=== PATIENT | male | born 1970 | race Caucasian/White ===

== ENCOUNTER 2017-04-03 12:05 | Day surgery (SDC) | payer OTHER ==
[~2017-04-03] VITALS: Ht 177.8 cm; Wt 89.6 kg
[~2017-04-03 12:05] MED LIST: 0.9% Sodium Chloride 1,000 ML IV PRN; Sodium Chloride LOK Flush 10 mL Syringe IV PRN; fentaNYL-PF 50 mCg/mL 2 mL Inj IVPUSH PRN
[2017-04-03 12:21] VITALS: BP 127/82; PULSE 45; O2SAT 96
[2017-04-03 13:52] VITALS: BP 120/74; PULSE 63; RESP 14; O2SAT 97
[2017-04-03 14:05] VITALS: BP 111/80; PULSE 60; RESP 14; O2SAT 96
--- NOTE | 2017-04-03 14:06 | ENDO ---
[address] [address] ENDOSCOPY PROCEDURE PATIENT: BOSTON REDMAN : 1970 MR#: [id number] ADMIT: 04/03/2017 JOB ID: [id number] DATE: 04/03/2017 PRIMARY PROVIDER: Bill Almonte MD PROCEDURE: Colonoscopy with hot snare polypectomy, cold snare polypectomy, and cold forceps polypectomy. INDICATIONS: A 46-year-old male with a personal history of multiple colon polyps, returning for surveillance. 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 SEDATION: 5 mg Versed,100 mcg fentanyl. COMPLICATIONS: None identified. BOWEL PREPARATION: Fair. Adequate exam. PROCEDURE INFORMATION: After the risks and benefits were explained, written and verbal informed consent was obtained, the patient was brought into the endoscopy suite and placed into the left lateral decubitus position. Sedation was achieved as above. Digital rectal examination accomplished. Moderate internal hemorrhoids were noted. No other pathology. The scope was introduced into the rectum and advanced to the cecum as identified by the appendiceal orifice and ileocecal valve. The scope was slowly withdrawn to carefully examine the mucosa for any defects or lesions. Multiple direct views were made through the dentate line for exclusion of pathology. The colon was decompressed, the scope removed the patient who tolerated the procedure well. FINDINGS: There were 11 polyps seen and removed today. Seven of [address] by [address] of hot snare, three by cold snare, and one by cold forceps. The largest polyp was perhaps somewhere in the 8-9 mm range. The vast majority of these polyps were in around the 5-6 mm size. No other significant pathology was appreciated throughout. ENDOSCOPIC DIAGNOSIS: 1. Multiple colon polyps. 2. Hemorrhoids. RECOMMENDATIONS: 1. Await histopathology. 2. Repeat colonoscopy in one year.
--- NOTE | 2017-04-05 17:53 | PATH ---
SURGICAL PATHOLOGY Attending Physician:Ni Manning CASE STATUS: Signed Out PATIENT NAME: BOSTON REDMAN PID: [id number] : 1970 DATE COLLECTED:04/03/2017 22:46 SPECIMEN: Colon, Polyp CLINICAL HISTORY: 1). COLON POLYPS X11 FINAL DIAGNOSIS: 1.COLON POLYPS, BIOPSIES: TUBULAR ADENOMAS, 11 FRAGMENTS. ICD10 D12.6 GROSS DESCRIPTION: Received in one formalin-filled container, labeled with the patient' s name and labeled "colon polyps x11", are multiple portions of tissue which aggregate to 1.5 x 0.6 x 0.3 cm. The specimen is filtered and entirely submitted in one cassette. (DC:[facility] [id number]) MICRO DESCRIPTION: See diagnosis. ICD-9 CODES: CPT CODES: 1: 49302 Electronically Signed Out Perlita May MD [facility] Pathology [facility] [address], [place] [address] Technical component performed at [facility], [facility] [address], [place], [address]
== END 2017-04-03 23:59 | disposition home or self-care (01) ==
LOC: END 12:05
PROVIDERS: ATTEND Internal Medicine Gastroenterology
DX: Z12.11 Encounter for screening for malignant neoplasm of colon (principal); Z86.010 Personal history of colon polyps; D12.6 Benign neoplasm of colon, unspecified; K64.8 Other hemorrhoids
CPT/HCPCS: 45380; 45385; 99153; G0500; J2250; J3010; J7030